=== PATIENT | female | born 1975 | race Caucasian/White ===

== ENCOUNTER 2017-06-05 11:11 | Emergency (ER) | payer MEDICAID ==
[2017-06-05] MEDS: Sodium Chloride 0.9% 1,000 ML IV ONE (12:03)
[2017-06-05] MEDS: Sodium Chloride 0.9% 10 ML Syringe FLUSH PRN (12:05)
[2017-06-05] MEDS: Ondansetron 4 MG/2 ML SDV IVPUSH ONE (12:05)
[2017-06-05] MEDS: Ketorolac 30 MG/ML SDV IVPUSH ONE (12:07)
--- NOTE | 2017-06-05 12:21 | EDM.PDOC ---
ED HPI GENERAL MEDICAL PROBLEM - General Chief Complaint: Gastrointestinal Problem Stated Complaint: BLOOD IN URINE/VOMITING BLOOD/BODY ACHES Time Seen by Provider: 06/05/17 11:42 Source of Information: Reports: Patient History Limitations: Reports: No Limitations - History of Present Illness INITIAL COMMENTS - FREE TEXT/NARRATIVE: 41-year-old female presents for evaluation and treatment of headaches, nausea, vomiting, decreased appetite, body aches and low back pain. Reports her symptoms started on Saturday. She was seen Saturday at the [facility]. She had a flu swab done which was negative. She is prescribed Zofran and codeine. She reports her symptoms have worsened. She has been taking aspirin but continues to have significant discomfort. Reports fatigue, fevers, chills, nausea, vomiting, decreased appetite, not productive cough, low back pain, body aches and headaches. She reports that she's had over 10 episodes of vomiting. No diarrhea. She has questioned there's been some blood in her emesis. She also questions if there's been some blood in her urine. Reports she has a history of kidney infections and she does describe being septic at one point. Patient did not have a flu vaccine this year. Generalized Pain Score (Numeric/FACES): 10 - Related Data Allergies Allergy/AdvReac Type Severity Reaction Status Date / Time acetaminophen [From Tylenol] Allergy Hives Verified 06/05/17 11:33 Home Meds: Home Meds Ondansetron [Zofran ODT] 4 mg PO Q8H PRN #15 tab.dis 06/05/17 [Rx] Past Medical History HEENT History: Reports: Impaired Vision Genitourinary History: Reports: Other (See Below) Other Genitourinary History: kidney infection Social & Family History - Tobacco Use Smoking Status *Q: Former Smoker Used Tobacco, but Quit: Yes Month Tobacco Last Used: 3 weeks ago Second Hand Smoke Exposure: No - Caffeine Use Caffeine Use: Reports: Coffee - Recreational Drug Use Recreational Drug Use: No ED ROS GENERAL - Review of Systems Review Of Systems: See Below Constitutional: Reports: Fever, Chills, Malaise, Fatigue, Decreased Appetite, Other (bodyaches) HEENT: Denies: Ear Pain Respiratory: Reports: Cough GI/Abdominal: Reports: Hematemesis, Nausea, Vomiting. Denies: Diarrhea : Reports: Hematuria Musculoskeletal: Reports: Back Pain (lower back) Neurological: Reports: Headache ED EXAM, RENAL/ - Physical Exam Exam: See Below Exam Limited By: No Limitations General Appearance: Alert, WD/WN, Moderate Distress, Obese Eye Exam: Bilateral Eye: Normal Inspection Ears: Normal External Exam, Normal Canal, Other (TMS obscured by cerumen) Nose: Normal Inspection Throat/Mouth: Normal Inspection, Normal Lips, Normal Oropharynx (slight erythema ), Normal Voice, No Airway Compromise Respiratory/Chest: No Respiratory Distress, Lungs Clear, Normal Breath Sounds Cardiovascular: Normal Peripheral Pulses, Regular Rate, Rhythm, No Murmur GI/Abdominal: Normal Bowel Sounds, Soft, Non-Tender Back Exam: Normal Inspection. No: CVA Tenderness (L), CVA Tenderness (R) Neurological: Alert, Oriented, Normal Cognition Psychiatric: Normal Affect, Normal Mood Skin Exam: Diaphoretic, Erythema (face, neck and upper back), Increased Warmth Course - Vital Signs Last Recorded V/S: Last Vital Signs Temp 36.6 C 06/05/17 11:30 Pulse 72 06/05/17 11:30 Resp 20 06/05/17 11:30 BP 131/81 06/05/17 11:30 Pulse Ox 98 06/05/17 11:30 Orthostatic Blood Pressure [ 113/85 Standing] Orthostatic Blood Pressure [ 120/79 Sitting] Orthostatic Blood Pressure [ 126/78 Supine] - Orders/Labs/Meds Orders: Active Orders 24 hr Category Date Time Status Orthostatic Vital Signs [RC] ASDIRECTED Care 06/05/17 11:43 Active Peripheral IV Care [RC] . DIRECTED Care 06/05/17 11:43 Active CULTURE STREP A CONFIRMATION [RM] Stat Lab 06/05/17 11:50 Results STREP SCRN A RAPID W CULT CONF [RM] Stat Lab 06/05/17 11:50 Results Peripheral IV Insertion Adult [OM.PC] Routine Oth 06/05/17 11:42 Ordered Labs: Laboratory Tests 06/05/17 06/05/17 06/05/17 Range/Units 11:30 12:27 12:27 WBC 4.44 (3.98-10.04) K/mm3 RBC 4.16 (3.98-5.22) M/mm3 Hgb 12.8 (11.2-15.7) gm/L Hct 38.9 (34.1-44.9) % MCV 93.5 (79.4-94.8) fl MCH 30.8 (25.6-32.2) pg MCHC 32.9 (32.2-35.5) g/dl RDW Std Deviation 43.9 (36.4-46.3) fL Plt Count 147 L (182-369) K/mm3 MPV 9.4 (9.4-12.3) fl Neutrophils % (Manual) 49 (40-60) % Band Neutrophils % 2 (0-10) % Lymphocytes % (Manual) 36 (20-40) % Atypical Lymphs % 0 % Monocytes % (Manual) 13 H (2-10) % Eosinophils % (Manual) 0 L (0.7-5.8) % Basophils % (Manual) 0 L (0.1-1.2) Toxic Granulation 1+ slight Platelet Estimate Adequate RBC Morph Comment Normal Sodium 141 (136-145) mEq/L Potassium 3.6 (3.5-5.1) mEq/L Chloride 104 (98-107) mEq/L Carbon Dioxide 27 (21-32) mEq/L Anion Gap 13.6 (5-15) BUN 9 (7-18) mg/dL Creatinine 0.7 (0.55-1.02) mg/dL Est Cr Clr Drug Dosing 101.01 mL/min Estimated GFR (MDRD) > 60 (>60) mL/min BUN/Creatinine Ratio 12.9 L (14-18) Glucose 72 L (74-106) mg/dL Calcium 8.1 L (8.5-10.1) mg/dL Total Bilirubin 0.3 (0.2-1.0) mg/dL AST 51 H (15-37) U/L ALT 52 (14-59) U/L Alkaline Phosphatase 43 L (46-116) U/L Total Protein 7.0 (6.4-8.2) g/dl Albumin 3.1 L (3.4-5.0) g/dl Globulin 3.9 gm/dL Albumin/Globulin Ratio 0.8 L (1-2) Urine Color Yellow (Yellow) Urine Appearance Clear (Clear) Urine pH 6.0 (5.0-8.0) Ur Specific [place] 1.015 (1.005-1.030) Urine Protein Negative (Negative) Urine Glucose (UA) Negative (Negative) Urine Ketones Negative (Negative) Urine Occult Blood 1+ H (Negative) Urine Nitrite Negative (Negative) Urine Bilirubin Negative (Negative) Urine Urobilinogen 0.2 (0.2-1.0) Ur Leukocyte Esterase Negative (Negative) Urine RBC 5-10 H (0-5) /hpf Urine WBC 0-5 (0-5) /hpf Ur Epithelial Cells 0-5 (0-5) /hpf Urine Bacteria Few (FEW) /hpf Urine Mucus Few (FEW) /hpf Meds: Medications Discontinued Medications Generic Name Dose Route Start Last Admin Trade Name Freq PRN Reason Stop Dose Admin Sodium Chloride 1,000 mls @ 999 mls/hr 06/05/17 11:45 06/05/17 12:03 Normal Saline IV 06/05/17 12:45 999 mls/hr ONETIME ONE Administration Ketorolac Tromethamine 30 mg 06/05/17 11:45 06/05/17 12:07 Toradol IVPUSH 06/05/17 11:46 30 mg ONETIME ONE Administration Ondansetron HCl 4 mg 06/05/17 11:45 06/05/17 12:05 Zofran IVPUSH 06/05/17 11:46 4 mg ONETIME ONE Administration Sodium Chloride 10 ml 06/05/17 11:43 06/05/17 12:05 Saline Flush FLUSH 10 ml ASDIRECTED PRN Administration Keep Vein Open - Radiology Interpretation Free Text/Narrative:: Chest: Two views of the chest were obtained. Comparison: No prior chest x-ray. Heart size and mediastinum are normal. Lungs are clear. Slight disc space narrowing is noted within the mid and lower thoracic spine with minimal endplate osteophytes. Surgical clips seen from prior cholecystectomy. Old healed rib fracture is seen within the 6th left rib. Impression: 1. Incidental findings. Nothing acute is seen. - Re-Assessments/Exams Free Text/Narrative Re-Assessment/Exam: 06/05/17 13:05 Influenza returned positive for type B. negative rapid strep. Discussed the labs and imaging with the patient. She still continues to feel under the weather like to go home at this time. Discussed with her Tamiflu, unfortunately, she is out of window for treatment. We will discharge her home. Discharge instructions as documented. Departure - Departure Time of Disposition: 13:06 Disposition: Home, Self-Care 01 Condition: Fair Clinical Impression: Influenza B - Discharge Information Prescriptions: Ondansetron [Zofran ODT] 4 mg PO Q8H PRN #15 tab.dis PRN Reason: Nausea Instructions: Influenza, Adult, [id number] Referrals: PCP,None [Primary Care Provider] - Forms: ED Department Discharge, ED Return to Work/School Form Additional Instructions: Zofran 1 tab sublingual every 8 hours as needed for nausea. [id number] Tylenol and Motrin as needed for headaches and symptom relief. make sure your are drinking plenty of fluids. You have influenza type B. Unfortunate, you out a window for Tamiflu. you are contagious one day before your symptoms started on 2 week afterwards. a note has been giving to for work. Make sure you're getting plenty of rest. Please return to the ER for symptoms change or worsen. Follow-up with your primary care provider as needed. - My Orders Last 24 Hours: My Active Orders 06/05/17 11:42 Peripheral IV Insertion Adult [OM.PC] Routine 06/05/17 11:43 Orthostatic Vital Signs [RC] ASDIRECTED Peripheral IV Care [RC] . DIRECTED 06/05/17 11:50 CULTURE STREP A CONFIRMATION [RM] Stat STREP SCRN A RAPID W CULT CONF [RM] Stat - Assessment/Plan Last 24 Hours: My Active Orders 06/05/17 11:42 Peripheral IV Insertion Adult [OM.PC] Routine 06/05/17 11:43 Orthostatic Vital Signs [RC] ASDIRECTED Peripheral IV Care [RC] . DIRECTED 06/05/17 11:50 CULTURE STREP A CONFIRMATION [RM] Stat STREP SCRN A RAPID W CULT CONF [RM] Stat
--- NOTE | 2017-06-05 15:46 | CR ---
Chest: Two views of the chest were obtained. Comparison: No prior chest x-ray. Heart size and mediastinum are normal. Lungs are clear. Slight disc space narrowing is noted within the mid and lower thoracic spine with minimal endplate osteophytes. Surgical clips seen from prior cholecystectomy. Old healed rib fracture is seen within the 6th left rib. Impression: 1. Incidental findings. Nothing acute is seen. Diagnostic code #2
== END 2017-06-05 13:18 | disposition home or self-care (01) ==
LOC: JD.ED 11:11
DX: J10.1 Influenza due to other identified influenza virus with other respiratory manifestations (principal); Z88.6 Allergy status to analgesic agent; Z87.891 Personal history of nicotine dependence
CPT/HCPCS: 36415; 71046; 80053; 81001; 85025; 87081; 87430; 87804; 96361; 96374; 96375; 99284; J1885; J2405; J7040; J7050

== ENCOUNTER 2017-06-22 19:47 | Emergency (ER) | payer MEDICAID ==
--- NOTE | 2017-06-22 21:16 | EDM.PDOC ---
ED HPI GENERAL MEDICAL PROBLEM - General Chief Complaint: Chest Pain Stated Complaint: LEFT SIDE PAIN AND CHEST PAIN Time Seen by Provider: 06/22/17 20:32 Source of Information: Reports: Patient History Limitations: Reports: No Limitations - History of Present Illness INITIAL COMMENTS - FREE TEXT/NARRATIVE: This is a 41-year-old female. For the last week she says she has been having some sharp left-sided chest pain but there is also some tightness and squeezing. When she does get the sharp pain is more of a jabbing type sensation that comes and goes quickly. It does hurt into her left upper arm as well but does not go into her neck or her jaw. She does complain of some mild sweating when this happens but no shortness of breath and no other acute symptoms. She does a lot of work involving her arms and lifting but she hasn't noticed any correlation between her work and these symptoms. Reaching with her left arm or overhead does not seem to aggravate the symptoms or make them worse. She's had no nausea and vomiting she's had no recent illnesses cold for coughs. She has no history of cardiac problems. Does not recall any injury that might have caused these symptoms though she does state that her left chest muscles and biceps are sore. 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 Left Chest Pain Score (Numeric/FACES): 7 - Related Data Allergies Allergy/AdvReac Type Severity Reaction Status Date / Time acetaminophen [From Tylenol] Allergy Hives Verified 06/05/17 11:33 Home Meds: Home Meds Ondansetron [Zofran ODT] 4 mg PO Q8H PRN #15 tab.dis 06/05/17 [Rx] Past Medical History HEENT History: Reports: Impaired Vision Genitourinary History: Reports: Other (See Below) Other Genitourinary History: kidney infection Psychiatric History: Reports: Addiction, Anxiety, Depression, Suicide Attempt Social & Family History - Tobacco Use Smoking Status *Q: Former Smoker Used Tobacco, but Quit: Yes Month Tobacco Last Used: 7 months Second Hand Smoke Exposure: No - Caffeine Use Caffeine Use: Reports: Coffee - Recreational Drug Use Recreational Drug Use: Yes Recreational Drug Type: Reports: Methamphetamine ED ROS GENERAL - Review of Systems Review Of Systems: See Below Constitutional: Reports: Malaise. Denies: Fever, Chills HEENT: Reports: No Symptoms Respiratory: Denies: Shortness of Breath, Cough Cardiovascular: Reports: Chest Pain. Denies: Lightheadedness Endocrine: Reports: No Symptoms GI/Abdominal: Denies: Abdominal Pain, Diarrhea, Nausea, Vomiting : Reports: No Symptoms Musculoskeletal: Reports: Other (Left Anterior chest tenderness of the muscles) Skin: Reports: No Symptoms Neurological: Reports: No Symptoms Psychiatric: Reports: No Symptoms Hematologic/Lymphatic: Reports: No Symptoms ED EXAM, GENERAL - Physical Exam Exam: See Below Exam Limited By: No Limitations General Appearance: Alert, WD/WN, No Apparent Distress Eye Exam: Bilateral Eye: Normal Inspection Ears: Normal External Exam Nose: Normal Inspection Throat/Mouth: Normal Inspection, Normal Lips, Normal Voice, No Airway Compromise Head: Normocephalic Neck: Supple Respiratory/Chest: No Respiratory Distress, Lungs Clear, Normal Breath Sounds, Other (When I palpate her left pectoralis major and the bicipital tendon on that left biceps as well as palpate the biceps itself she has tenderness and pain, I cannot really reproduce the type of pain she is talking about but she does state that when I push on it or squeeze the bicep muscle and over the pectoralis muscle for the bicipital tendon that's exactly where she is having the pain that comes and goes) Cardiovascular: Regular Rate, Rhythm, No Murmur GI/Abdominal: Soft, Non-Tender Back Exam: Full Range of Motion Extremities: Normal Inspection, Normal Range of Motion, Other (See above about the left biceps and bicipital tendon). No: Non-Tender Neurological: Alert, Oriented Psychiatric: Normal Affect, Normal Mood Skin Exam: Warm, Dry EKG INTERPRETATION EKG Date: 06/22/17 Time: 21:04 EKG Interpretation Comments: EKG shows a normal sinus rhythm, there is no acute ST or T-wave changes, there is no ischemia, she does have a slight increase AR interval noted. Course - Vital Signs Last Recorded V/S: Last Vital Signs Temp 98.7 F 06/22/17 19:55 Pulse 71 06/22/17 19:55 Resp 20 06/22/17 19:55 BP 150/93 H 06/22/17 19:55 Pulse Ox 97 06/22/17 19:55 - Orders/Labs/Meds Orders: Active Orders 24 hr Category Date Time Status EKG 12 Lead [EKG Documentation Completion] [RC] STAT Care 06/22/17 20:55 Active Labs: Laboratory Tests 06/22/17 06/22/17 Range/Units 21:15 21:15 WBC 6.01 (3.98-10.04) K/mm3 RBC 4.19 (3.98-5.22) M/mm3 Hgb 12.5 (11.2-15.7) gm/L Hct 38.2 (34.1-44.9) % MCV 91.2 (79.4-94.8) fl MCH 29.8 (25.6-32.2) pg MCHC 32.7 (32.2-35.5) g/dl RDW Std Deviation 43.6 (36.4-46.3) fL Plt Count 250 (182-369) K/mm3 MPV 9.4 (9.4-12.3) fl Neut % (Auto) 47.7 (34.0-71.1) % Lymph % (Auto) 40.3 (19.3-51.7) % [place] % (Auto) 10.8 (4.7-12.5) % Eos % (Auto) 1.0 (0.7-5.8) Baso % (Auto) 0.0 L (0.1-1.2) % Neut # (Auto) 2.87 (1.56-6.13) K/mm3 Lymph # (Auto) 2.42 (1.18-3.74) K/mm3 [place]ander # (Auto) 0.65 H (0.24-0.36) K/mm3 Eos # (Auto) 0.06 (0.04-0.36) K/mm3 Baso # (Auto) 0.00 L (0.01-0.08) K/mm3 Sodium 143 (136-145) mEq/L Potassium 3.8 (3.5-5.1) mEq/L Chloride 107 (98-107) mEq/L Carbon Dioxide 29 (21-32) mEq/L Anion Gap 10.8 (5-15) BUN 13 (7-18) mg/dL Creatinine 0.7 (0.55-1.02) mg/dL Est Cr Clr Drug Dosing 101.01 mL/min Estimated GFR (MDRD) > 60 (>60) mL/min BUN/Creatinine Ratio 18.6 H (14-18) Glucose 97 (74-106) mg/dL Calcium 9.0 (8.5-10.1) mg/dL Total Bilirubin 0.2 (0.2-1.0) mg/dL AST 16 (15-37) U/L ALT 18 (14-59) U/L Alkaline Phosphatase 52 (46-116) U/L Troponin I < 0.017 (0.00-0.056) ng/mL Total Protein 7.4 (6.4-8.2) g/dl Albumin 3.5 (3.4-5.0) g/dl Globulin 3.9 gm/dL Albumin/Globulin Ratio 0.9 L (1-2) - Re-Assessments/Exams Free Text/Narrative Re-Assessment/Exam: 06/22/17 22:01 I spoke to the patient regarding her EKG and her lab results. Her left-sided chest and arm pain appears to be musculoskeletal in nature with examination and the negative labs and EKG. Departure - Departure Time of Disposition: 22:02 Disposition: Home, Self-Care 01 Condition: Good Clinical Impression: Bicipital tendinitis, left shoulder Strain of left biceps Qualifiers: Encounter type: initial encounter Qualified Code(s): S46.212A - Strain of muscle, fascia and tendon of other parts of biceps, left arm, initial encounter Strain of left pectoralis muscle Qualifiers: Encounter type: initial encounter Qualified Code(s): S29.011A - Strain of muscle and tendon of front wall of thorax, initial encounter Referrals: Tanvi Ayala NP [Primary Care Provider] - Forms: ED Department Discharge Additional Instructions: Use heat to your chest and arm on and off to help with the soreness, avoid repetitive lifting movements especially if you lift your arms above your waist, take some Aleve or ibuprofen as needed for the soreness, follow-up with your family doctor this week for recheck, return to the ER if needed - My Orders Last 24 Hours: My Active Orders 06/22/17 20:55 EKG 12 Lead [EKG Documentation Completion] [RC] STAT - Assessment/Plan Last 24 Hours: My Active Orders 06/22/17 20:55 EKG 12 Lead [EKG Documentation Completion] [RC] STAT
== END 2017-06-22 22:10 | disposition home or self-care (01) ==
LOC: JD.ED 19:47 → SUPCPDRO 19:47 → JD.ED 22:10
DX: S29.011A Strain of muscle and tendon of front wall of thorax, initial encounter (principal); S46.212A Strain of muscle, fascia and tendon of other parts of biceps, left arm, initial encounter; M75.22 Bicipital tendinitis, left shoulder; Z87.891 Personal history of nicotine dependence; Z88.6 Allergy status to analgesic agent; X50.9XXA Other and unspecified overexertion or strenuous movements or postures, initial encounter
CPT/HCPCS: 36415; 80053; 84484; 85025; 93005; 99283-25; 99284

== ENCOUNTER 2018-01-12 14:07 | Emergency (ER) | payer MEDICAID ==
--- NOTE | 2018-01-12 14:52 | EDM.PDOC ---
<Giselle Ramos - Last Filed: 01/12/18 15:07> ED HPI GENERAL MEDICAL PROBLEM - General Chief Complaint: Genitourinary Problem Stated Complaint: POSS UTI Time Seen by Provider: 01/12/18 14:24 Source of Information: Reports: Patient History Limitations: Reports: No Limitations - History of Present Illness INITIAL COMMENTS - FREE TEXT/NARRATIVE: Sandi is a 42-year-old woman who states she feels like she's "bruised down there," in her genital region. She reports symptoms have been going on for 4 days with no improvement. She has tried drinking cranberry juice , which has not helped. She does report headache, nausea, right low back pain, urinary urgency, frequency, and intermittent pain with urination, but no vaginal discharge, mid-back pain, fever/chills, or discolored urine. She reports a history of UTI and kidney infection in the past. Sandi reports she recently started sexual activity with a new boyfriend after abstaining from sex for about 1 year. She says he denies any symptoms of STI or high-risk sexual activity with multiple partners. She denies traumatic sexual intercourse. Her last normal menstrual period was 3 weeks ago. She is s/ p bilateral tubal ligation, but has gotten once since the surgery. She does not use any other form of contraception. Duration: Day(s): (4) Vaginal Pain Score (Numeric/FACES): 2 - Related Data Allergies Allergy/AdvReac Type Severity Reaction Status Date / Time acetaminophen [From Tylenol] Allergy Hives Verified 01/12/18 14:25 Home Meds: Home Meds . [No Known Home Meds] 01/12/18 [History] Past Medical History HEENT History: Reports: Impaired Vision Genitourinary History: Reports: Other (See Below) Other Genitourinary History: kidney infection Psychiatric History: Reports: Addiction, Anxiety, Depression, Suicide Attempt Social & Family History - Tobacco Use Smoking Status *Q: Unknown Ever Smoked - Caffeine Use Caffeine Use: Reports: Coffee ED ROS GENERAL - Review of Systems Review Of Systems: ROS reveals no pertinent complaints other than HPI. ED EXAM, RENAL/ - Physical Exam Exam Limited By: No Limitations General Appearance: Alert, Mild Distress Respiratory/Chest: Lungs Clear, Normal Breath Sounds Cardiovascular: Normal Peripheral Pulses, Regular Rate, Rhythm, No Murmur GI/Abdominal: Normal Bowel Sounds, Soft, Non-Tender (no suprapubic tenderness) (Female) Exam: Normal External Exam, Normal Speculum Exam, Other (tenderness to soft tissue between urethra and vagina). No: Cervical Discharge, Cervix Motion Tenderness, Vaginal Bleeding, Vaginal Discharge, Vaginal Lesions, Vaginal Tears Back Exam: Paraspinal Tenderness (paraspinal tenderness in the left sacral region). No: CVA Tenderness (L) (no CVA tenderness on left or right) Neurological: Alert, Oriented Psychiatric: Anxious Course - Vital Signs Last Recorded V/S: Last Vital Signs Temp 36.7 C 01/12/18 14:18 Pulse 71 01/12/18 14:18 Resp 18 01/12/18 14:18 BP 140/85 01/12/18 14:18 Pulse Ox 100 01/12/18 14:18 - Orders/Labs/Meds Orders: Active Orders 24 hr Category Date Time Status Pelvic Exam, Set Up [RC] ASDIRECTED Care 01/12/18 14:42 Active Labs: Laboratory Tests 01/12/18 01/12/18 Range/Units 14:15 15:00 Urine Color Yellow (Yellow) Urine Appearance Clear (Clear) Urine pH 7.0 (5.0-8.0) Ur Specific [place] 1.025 (1.005-1.030) Urine Protein Negative (Negative) Urine Glucose (UA) Negative (Negative) Urine Ketones Negative (Negative) Urine Occult Blood Negative (Negative) Urine Nitrite Negative (Negative) Urine Bilirubin Negative (Negative) Urine Urobilinogen 0.2 (0.2-1.0) Ur Leukocyte Esterase Negative (Negative) Urine RBC 0-5 (0-5) /hpf Urine WBC 0-5 (0-5) /hpf Ur Epithelial Cells 0-5 (0-5) /hpf Urine Bacteria Few (FEW) /hpf Urine Mucus Moderate H (FEW) /hpf Urinalysis Comment C trachomatis DNA (PCR) Not detected N gonorrhoeae DNA (PCR) Not detected Departure - Departure Disposition: Home, Self-Care 01 Clinical Impression: Vaginal pain - Discharge Information *PRESCRIPTION DRUG MONITORING PROGRAM REVIEWED*: Not Applicable *COPY OF PRESCRIPTION DRUG MONITORING REPORT IN PATIENT NAZANIN: Not Applicable Referrals: PCP,None [Primary Care Provider] - Forms: ED Department Discharge Additional Instructions: 1. Take Tylenol and Ibuprofen for pain and inflammation. Ibuprofen will be the most helpful, since it is anti-inflammatory. You can alternate doses of Tylenol and Ibuprofen every three hours. Recommend abstaining from sexual activity until pain is resolved. Continue to drink fluids to prevent urinary tract infection. 2. Follow up as needed with your primary care provider. 3. Return to the ED if you have worsening or concerning symptoms, including fever/chills, nausea/vomiting, mid-back pain, light-headedness, passing out. - My Orders Last 24 Hours: My Active Orders 01/12/18 14:42 Pelvic Exam, Set Up [RC] ASDIRECTED - Assessment/Plan Last 24 Hours: My Active Orders 01/12/18 14:42 Pelvic Exam, Set Up [RC] ASDIRECTED <Scottie Haywood - Last Filed: 01/12/18 18:54> ED ROS GENERAL - Review of Systems Review Of Systems: See Below Constitutional: Denies: Fever Respiratory: Reports: No Symptoms Cardiovascular: Reports: No Symptoms GI/Abdominal: Reports: No Symptoms. Denies: Abdominal Pain : Denies: Dysuria Skin: Reports: No Symptoms. Denies: Wound ED EXAM, RENAL/ - Physical Exam Exam: See Below Ears: Normal External Exam Nose: Normal Inspection Throat/Mouth: Normal Inspection, Normal Oropharynx, Normal Voice, No Airway Compromise Head: Atraumatic, Normocephalic Neck: Normal Inspection, Supple Respiratory/Chest: No Respiratory Distress Skin Exam: Warm, Dry, Intact, Normal Color Course - Re-Assessments/Exams Free Text/Narrative Re-Assessment/Exam: 01/12/18 18:53 No definite explanation for patient's symptoms. No external or speculum exam evidence of injury or infection. Advised pelvic rest, [employer] f/u as needed. UA shows no infection. STD amp neg. Departure - Departure Time of Disposition: 15:00
[2018-01-12 16:49] LABS: C. TRACHOMATIS BY PCR NOT DETECTED; N. GONORRHOEAE BY PCR NOT DETECTED
== END 2018-01-12 15:31 | disposition home or self-care (01) ==
LOC: JD.ED 14:07
DX: R10.2 Pelvic and perineal pain (principal); Z88.8 Allergy status to other drugs, medicaments and biological substances
CPT/HCPCS: 81001; 87491; 87591; 99283

== ENCOUNTER 2021-06-24 09:26 | Emergency (ER) | payer SELFPAY ==
[2021-06-24] MEDS ORDERED: Ondansetron 4 MG Tab.DIS PO ONE (09:56)
[2021-06-24] MEDS ORDERED: LORazepam 1 MG Tab PO ONE (09:56)
== END 2021-06-24 11:35 | disposition home or self-care (01) ==
LOC: JD.ED 09:26
DX: F10.230 Alcohol dependence with withdrawal, uncomplicated (principal); F15.10 Other stimulant abuse, uncomplicated; I10 Essential (primary) hypertension; Y90.5 Blood alcohol level of 100-119 mg/100 ml
CPT/HCPCS: 36415; 80053; 80306; 80307; 81001; 83690; 85025; 99284; A9270

== ENCOUNTER 2021-06-24 13:05 | Emergency (ER) | payer SELFPAY | END 2021-06-24 16:04 | disposition home or self-care (01) | LOC: JD.ED 13:05 | DX: S06.0X0A Concussion without loss of consciousness, initial encounter (principal); R10.11 Right upper quadrant pain; I10 Essential (primary) hypertension; Z88.8 Allergy status to other drugs, medicaments and biological substances; Z72.0 Tobacco use; Z86.16 Personal history of COVID-19; W18.09XA Striking against other object with subsequent fall, initial encounter | CPT/HCPCS: 70450; 70450-26; 74176; 74176-26; 99284; 99284-25 ==

== ENCOUNTER 2021-08-04 11:59 | Emergency (ER) | payer SELFPAY ==
[2021-08-04] MEDS ORDERED: Sodium Chloride 0.9% 10 ML Syringe FLUSH PRN (12:31)
[2021-08-04] MEDS ORDERED: Albuterol 6.7 GM Inhaler INH ONE (12:32)
== END 2021-08-04 14:40 | disposition home or self-care (01) ==
LOC: JD.ED 11:59
DX: J45.909 Unspecified asthma, uncomplicated (principal); Z72.0 Tobacco use
CPT/HCPCS: 36415; 71045; 80053; 83735; 83880; 84484; 85025; 85610; 85730; 93005; 99285; A9270; 93010; 99283

== ENCOUNTER 2021-08-23 16:54 | Emergency (ER) | payer SELFPAY ==
[2021-08-23] MEDS ORDERED: Cyclobenzaprine 10 MG Tab PO ONE (17:46)
[2021-08-23] MEDS ORDERED: Ketorolac 60 MG/2 ML SDV IM ONE (17:46)
== END 2021-08-23 19:51 | disposition home or self-care (01) ==
LOC: JD.ED 16:54
DX: M54.42 Lumbago with sciatica, left side (principal); J45.909 Unspecified asthma, uncomplicated; I10 Essential (primary) hypertension; Z86.16 Personal history of COVID-19; Z79.899 Other long term (current) drug therapy; Z87.891 Personal history of nicotine dependence; Z88.6 Allergy status to analgesic agent; X50.0XXA Overexertion from strenuous movement or load, initial encounter; Y99.0 Civilian activity done for income or pay
CPT/HCPCS: 72100; 96372; 99283; A9270; J1885

== ENCOUNTER 2022-05-24 09:18 | Emergency (ER) | payer MEDICAID ==
[2022-05-24] MEDS ORDERED: Ketorolac 30 MG/ML SDV IM ONE (12:10)
== END 2022-05-24 12:46 | disposition home or self-care (01) ==
LOC: JD.ED 09:18
DX: N93.9 Abnormal uterine and vaginal bleeding, unspecified (principal); I10 Essential (primary) hypertension; J45.909 Unspecified asthma, uncomplicated; Z87.891 Personal history of nicotine dependence
CPT/HCPCS: 36415; 81001; 81025; 85025; 96372; 99284; J1885; 99283